=== PATIENT | female | born 1960 | race Caucasian/White ===

== ENCOUNTER → 2024-08-02 14:15 | Outpatient (REF) | payer BC, SELFPAY | LOC: HWWDC 14:15 | PROVIDERS: ATTENDING PHYSICIAN Obstetrics & Gynecology; FAMILY PHYSICIAN Family Medicine | DX: Z12.31 Encounter for screening mammogram for malignant neoplasm of breast (principal) | CPT/HCPCS: 77063; 77067 ==

== ENCOUNTER → 2025-08-05 10:56 | Outpatient (REF) | payer MEDICARE, BC, SELFPAY | LOC: HWRAD 10:56 | PROVIDERS: ATTENDING PHYSICIAN Student in an Organized Health Care Education/Training Program; FAMILY PHYSICIAN Family Medicine; REFERRING PHYSICIAN Internal Medicine Endocrinology, Diabetes & Metabolism | DX: M81.0 Age-related osteoporosis without current pathological fracture (principal); Z12.31 Encounter for screening mammogram for malignant neoplasm of breast | CPT/HCPCS: 77063; 77067; 77080 ==

== ENCOUNTER 2025-08-06 11:51 | Emergency (ER) | payer MEDICARE, BC, SELFPAY ==
[2025-08-06 11:54] VITALS: BP 134/86
[2025-08-06 12:28] VITALS: BMI 20.7
[2025-08-06 12:59] LABS: Hematocrit 40.9 % (37.0-47.0); Hemoglobin 13.9 g/dL (12.0-16.0); Mean Corp Hgb Conc. 34.0 g/dL (33.0-37.0); Mean Corpuscular Volume 91.7 fL (81.0-99.0); Nucleated Red Blood Cells % 0 %; Platelet Count 238 10^3/uL (130-400); Red Cell Dist. Width 12.7 % (11.5-14.5)
[2025-08-06 13:15] LABS: ALT (SGPT) 30 U/L (0-35); AST (SGOT) 36 U/L (14-36); Albumin 4.4 g/dl (3.5-5.0); Alkaline Phosphatase 86 U/L (38-126); Blood Urea Nitrogen 17 mg/dl (7-17); Calcium 9.4 mg/dl (8.4-10.2); Carbon Dioxide 29 mmol/L (22-30); Chloride 99 mmol/L (98-107); Estimated Creatinine Clearance 63 ml/min; Glucose 174 mg/dl (70-99); Potassium 3.8 mmol/L (3.5-5.1); Sodium 132 mmol/L (135-145); Total Protein 7.2 g/dl (6.3-8.2); eGFR > 60.00
--- NOTE | 2025-08-06 13:50 | ED.GENMED ---
History of Present Illness
General
Chief Complaint: Abdominal Pain
Source: patient
Time Seen by Provider: 08/06/25 13:09
History of Present Illness
History of Present Illness:
65-year-old female with past medical history of migraines and hypothyroidism presenting to the ER for evaluation of generalized abdominal cramping that began earlier this morning with the sensation of needing to have a bowel movement which patient
states is not atypical for her, she had her bowel movement without any difficulty but states the cramping persisted and became severe for approximately 2 hours which is why she decided to come to the ER. She reports that while being in triage the
pain seemed to mostly subside. She denies any other symptoms including nausea or vomiting, bowel changes, urinary symptoms, fevers. No known sick contacts, recent travel or recent antibiotics. Surgical history was noted for previous tubal
ligation. Social history was mostly noncontributory although the patient did note that she had 1 glass of wine 3 days consecutively as part of the .
Past History
Past History
ED Past Medical History: Hypothyroidism; Negative IDDM
ED Past Surgical History: Gynecological and Other (Fatty tumor removed from the arm); Negative Cardiac
Social History
Tobacco: Non-smoker
Alcohol: None
Drug: None
Personal:
Living: with family
Employment: Employed
Family History
Family History: Other ( ill with similar illness)
Review of Systems
Review of Systems
All Other Systems: ROS reviewed and negative except as documented in HPI and ROS
Phy Exam
Physical Exam
Physical Exam:
GENERAL: Alert , in no apparent distress
EYE: clear conjunctiva b/l
HEAD: NCAT
ENT: o/p clr, mmm.
CARDIAC: Regular rate and rhythm .
LUNGS: Clear breath sounds bilaterally, no acute respiratory distress, no wheezes/rales/rhonchi
ABDOMEN: Soft, mild tenderness within left lower quadrant, no r/g, no cvat
NEUROLOGICAL: Alert and oriented
SKIN: Warm and dry, skin intact.
MUSCULOSKELETAL: No edema, well perfused.
PSYCH: Normal and appropriate interaction.
Scores
Heart Failure Risk
Heart Failure Risk Score: Not Applicable
Heart Score for Chest Pain Patients
STEMI patient?: Not applicable
Withdrawal Assessment of Alcohol
Withdrawal Assessment Completed?: Not applicable
Course
Orders/Labs/Results
Orders:
Orders
08/06/25 12:36
CMP [Comprehensive Metabolic Panel] Urgent
Complete Blood Count/With Diff Urgent
Lipase Urgent
Comment: ADD ON
08/06/25 13:19
CT Abd/pelvis W Iv Cont Urgent
Comment:
Reason For Exam: generalized abd pain
08/06/25 13:55
Add On- LAB Urgent
Tests Added?: lipase
08/06/25 14:28
Urinalysis Reflex To Culture Urgent
Date Specimen was Collected: 08/06/25
Time Specimen was Collected: 14:27
Urine Microscopic Reflex Cult Urgent
Abnormal Lab Results
08/06/25 08/06/25
12:36 14:28
MCH 31.2 H pg
(27.0-31.0)
Absolute Lymphs (auto) 0.9 L 10^3/uL
(1.2-3.4)
Lymphocytes % 14.7 L %
(20.5-51.1)
Monocytes % 9.9 H %
(1.7-9.3)
Sodium 132 L mmol/L
(135-145)
Glucose 174 H mg/dl
(70-99)
Urine Bacteria (Reflex) Few A
(Negative)
Urine Albumin (Reflex) 1+ A
(Neg - Trace)
08/06/25 12:36
08/06/25 12:36
Vital Signs
Initial and Last Documented VS:
Initial Vital Signs
Temp Pulse Resp BP Pulse Ox
97.4 F 116 20 134/86 99
08/06/25 11:54 08/06/25 11:54 08/06/25 11:54 08/06/25 11:54 08/06/25 11:54
Last Documented Vital Signs
Temp Pulse Resp BP Pulse Ox
97.4 F 88 18 124/70 99
08/06/25 11:54 08/06/25 16:00 08/06/25 16:00 08/06/25 16:00 08/06/25 13:55
MDM/Problems Addressed
Differential Diagnosis Includes:
Diverticulitis
Colitis
UTI
Pancreatitis
Renal/Ureteral Colic
Ovarian cyst/Torsion
Appy
MDM/Problems Addressed:
65-year-old female presenting to the ER for evaluation of lower abdominal pain that began few hours prior to arrival, described to be severe and worse after a bowel movement, symptoms are mostly resolved now. She is declining anything for her pain.
Labs initiated on arrival are reassuring. I did add on a lipase level and urinalysis. CT scan ordered. Disposition pending.
*Pulse Oximetry
SaO2: 99
Oxygen Mode of Delivery: Room air
Patient hypoxic: no
*Critical Care Note
Total Time (30-74mins, 75-104mins- exclusive of procedures): Not Applicable
ED Attending Note
-
Portions of this chart may have been created with voice recognition software.� Occasional wrong word or��sound alike� substitutions may have occurred due to the inherent limitations of voice recognition software.
Discharge Plan
Departure
Patient Disposition: Home (Routine Discharge)
Date of Disposition: 08/06/25
Time of Disposition: 16:20
Patient with high blood pressure during this ER visit?: No
Condition: Good
Covid-19: Not Applicable
Discharge Problem:
Abdominal pain
Instructions: Abdominal Pain
Prescriptions:
New
dicyclomine 20 mg tablet
20 mg PO QID PRN (Reason: abdominal pain) Qty: 10 0RF
No Action
levothyroxine 88 MCG tablet
88 mcg PO DAILY
acetaminophen [Tylenol] 325 MG capsule
650 mg PO Q6HPRN PRN (Reason: headache)
potassium chloride 20 MEQ packet
20 meq PO DAILY Qty: 5 0RF
Referrals:
Aren Shook MD [Family Provider, Family Practice]
Activity Restrictions/Additional Instructions:
You came to the emergency department today with concerns of abdominal pain. Here your reassuring assessment. Please take the Bentyl as needed for symptoms in the future and follow-up closely with the primary care doctor. Return for any worsening,
new or concerning symptoms.
Interventions
Interventions:
*Risk Screen - Suicide Last Done: 08/06/25 11:54
*General Assessment Last Done: 08/06/25 11:54
*Neglect/Abuse Screening Last Done: 08/06/25 11:54
*ED COVID-19 Vaccine History Last Done: 08/06/25 11:54
*ED Influenza Vaccine History Last Done: 08/06/25 11:54
*Nursing Disposition Last Done: 08/06/25 16:35
OL-Eehprv-Lhfhihrdng Assessment Last Done: 08/06/25 13:00
Discharge Date and Time
Discharge Date/Time: 08/06/25 16:36
Print Language: SLOVENIAN
[2025-08-06 14:00] VITALS: BP 123/74
[2025-08-06 14:27] LABS: Lipase 158 U/L (23-300)
[2025-08-06 14:42] LABS: Urine Character Clear (Clear)
[2025-08-06 14:48] LABS: Urine Red Blood Cell 0-2 /HPF (0-2); Urine Squamous Cell 0-2 /LPF (Few); Urine White Cell 0-2 /HPF (0-5)
[2025-08-06 16:00] VITALS: BP 124/70
== END 2025-08-06 16:36 | disposition home or self-care (01) ==
LOC: EMR 11:51
PROVIDERS: Physician Assistant Medical; EMERGENCY PHYSICIAN Emergency Medicine; FAMILY PHYSICIAN Family Medicine
DX: R10.84 Generalized abdominal pain (principal); G43.909 Migraine, unspecified, not intractable, without status migrainosus; E03.9 Hypothyroidism, unspecified
CPT/HCPCS: 99284; 74177; 80053; 81003; 81015; 83690; 85025; Q9967